=== PATIENT | female | born 1950 | race African-American/Black ===

== ENCOUNTER 2023-02-14 10:26 | Emergency (ER) | payer OTHER ==
[2023-02-14 10:47] VITALS: BP 186/74; PULSE 60; RESP 18; TEMP 97.7; BMI 36.4
[2023-02-14] MEDS ORDERED: ACETAMINOPHEN 500 MG TABLET (FP) PO ONE (12:38)
[2023-02-14] MEDS ORDERED: ACETAMINOPHEN 500 MG TABLET (FP) ONE (12:41)
[2023-02-14] MEDS ORDERED: CEPHALEXIN MONOHYDRATE 500 MG CAPSULE (UD) PO ONE (13:07)
[2023-02-14] MEDS ORDERED: CEPHALEXIN MONOHYDRATE 500 MG CAPSULE (UD) ONE (13:14)
== END 2023-02-14 13:41 | disposition home or self-care (01) ==
LOC: JER 10:26 → JERFT 10:26
PROC: 0HQGXZZ Repair Left Hand Skin, External Approach (ICD-10-PCS; principal; 2023-02-14)
DX: S61.211A Laceration without foreign body of left index finger without damage to nail, initial encounter (principal); M79.645 Pain in left finger(s); W26.0XXA Contact with knife, initial encounter
CPT/HCPCS: 99283-25

== ENCOUNTER 2023-04-24 00:34 | Emergency (ER) | payer OTHER ==
[2023-04-24 00:51] VITALS: BP 100/65; PULSE 88; RESP 20; TEMP 97.4; BMI 35.9
[2023-04-24] MEDS ORDERED: LIDOCAINE 5% TOPICAL PATCH TP ONE (02:10)
[2023-04-24] MEDS ORDERED: KETOROLAC TROMETHAMINE 15 MG/ML VIAL IM ONE (02:10)
[2023-04-24] MEDS ORDERED: KETOROLAC TROMETHAMINE 15 MG/ML VIAL ONE (02:13)
[2023-04-24] MEDS ORDERED: LIDOCAINE 4% PATCH TP ONE (02:13)
[2023-04-24] MEDS ORDERED: LIDOCAINE PATCH REMOVAL MC SCH (22:00)
== END 2023-04-24 02:51 | disposition home or self-care (01) ==
LOC: JER 00:34
PROC: 3E0233Z Introduction of Anti-inflammatory into Muscle, Percutaneous Approach (ICD-10-PCS; principal; 2023-04-24)
DX: M54.6 Pain in thoracic spine (principal); M54.2 Cervicalgia
CPT/HCPCS: 96372; 99284-25

== ENCOUNTER 2024-08-20 13:06 | Emergency (ER) | payer OTHER ==
[2024-08-20 13:16] VITALS: BP 141/80; PULSE 81; RESP 18; TEMP 97.7; BMI 34.4
[2024-08-20 14:06] LABS: EPI CELLS 22 /uL (0-25.1); HYALINE CASTS 1 /uL (0-3.1); PH,URINE 5.5 (5.0-8.0); URINE APPEARANCE CLEAR; URINE BACTERIA 558 /uL (0-1359); URINE BILIRUBIN NEGATIVE (NEGATIVE); URINE COLOR YELLOW; URINE GLUCOSE (UA) NEGATIVE (NEGATIVE); URINE KETONE NEGATIVE (NEGATIVE); URINE LEUK ESTERASE NEGATIVE (NEGATIVE); URINE NITRITE NEGATIVE (NEGATIVE); URINE PROTEIN 1+ (NEGATIVE); URINE RBC 26 /uL (0-23.9); URINE UROBILINOGEN 0.2 mg/dL (0.2-1.0); URINE WBC 36 /uL (0-25.8)
[2024-08-20] MEDS ORDERED: KETOROLAC TROMETHAMINE 30 MG/1 ML VIAL ONE (14:42)
[2024-08-20] MEDS ORDERED: LIDOCAINE 5% TOPICAL PATCH ONE (14:42)
[2024-08-20] MEDS: LIDOCAINE 5% TOPICAL PATCH TP ONE (14:47)
[2024-08-20] MEDS: KETOROLAC TROMETHAMINE 30 MG/1 ML VIAL IM ONE (14:47)
== END 2024-08-20 17:19 | disposition home or self-care (01) ==
LOC: JER 13:06
PROC: 3E0233Z Introduction of Anti-inflammatory into Muscle, Percutaneous Approach (ICD-10-PCS; principal; 2024-08-20)
DX: M54.50 Low back pain, unspecified (principal)
CPT/HCPCS: 81003; 87086; 96372; 99284-25